=== PATIENT | female | born 1985 | race American Indian/Alaskan Native ===

== ENCOUNTER → 2017-08-24 | Outpatient (CLI) | payer MEDICAID, OTHER ==
[2016-11-10 22:00] VITALS: BMI 29.5
[~2017-08-24] MED LIST: ACE3 PO; IBUP600T22 PO; PREN-127 PO
--- NOTE | 2017-08-24 11:18 | RADIOLOGY IMAGING REPORT ---
FACILITY: [facility] PATIENT NAME: Ene Bunch : 1985 MR: [id number] V: [id number] EXAM DATE: ORDERING PHYSICIAN: SONU ROMAN TECHNOLOGIST: Location: [facility] Patient: Ene Bunch : 1985 Visit/Account:[id number] Date of Sevice: 08/24/2017 LIVER HISTORY: Elevated transaminase and cholesterol levels COMPARISON: May 30, 2017 FINDINGS: Gallbladder: Unremarkable; no stones or sludge. Liver: Is increased echogenicity throughout liver which can be seen with fatty infiltration other inf iltrative process. Common duct: Normal, five mm diameter. Pancreas: Partially obscured by bowel, visualized aspects unremarkable. Right kidney: Unremarkable as imaged measuring 10.8 cm in length Upper abdominal aorta and IVC: Patent. Ascites: None visualized. IMPRESSION: Increased echogenicity throughout the liver which can be seen with fatty infiltration other infiltrat trent process. Report Dictated By: Liberty Rivera MD at 08/24/2017 11:10 AM Report E-Signed By: Liberty Rivera MD at 08/24/2017 11:13 AM WSN:[id number]
== END ==
LOC: US 00:27
PROVIDERS: ATTEND Family Medicine
DX: K76.0 Fatty (change of) liver, not elsewhere classified (principal)
CPT/HCPCS: 76705

== ENCOUNTER → 2018-11-18 | Outpatient (CLI) | payer OTHER ==
[2016-11-10 22:00] VITALS: BMI 29.5
== END ==
LOC: LAB 14:34
PROVIDERS: ATTEND Obstetrics & Gynecology
DX: O20.0 Threatened abortion (principal)
CPT/HCPCS: 36415; 84702